=== PATIENT | female | born 1965 | race Caucasian/White ===

== ENCOUNTER 2019-09-05 19:49 | Emergency (ER) | payer MEDICAID, SELFPAY ==
[~2019-09-05] VITALS: Ht 172.7 cm; Wt 110.0 kg
--- NOTE | 2019-09-05 20:06 | NUR ---
BIB [facility] WITH C/O THROBBING MIGRAINE, PT SEEN [place] LAST NIGHT AND SEEN PMD TODAY RECEIVED UNKNOWN IM SHOT THAT HELPED BUT MIGRAINE IS NOW BACK. PT RESTING ON GURNEY, MONITORS APPLIED, SIDERAILS UP X2, CALL LIGHT WITHIN REACH
[2019-09-05] MEDS ORDERED: DIPHENHYDRAMINE 50 MG/ML, 1ML IVPush ONE (20:30)
[2019-09-05] MEDS ORDERED: PLEASE ENTER ALLERGIES MC SCH (20:30)
[2019-09-05] MEDS ORDERED: METOCLOPRAMIDE 5 MG/ML, 2ML IVPush ONE (20:30)
[2019-09-05] MEDS ORDERED: KETOROLAC 30 MG/1 ML IVPush ONE (20:30)
[2019-09-05] MEDS ORDERED: DIPHENHYDRAMINE 50 MG/ML, 1ML ONE (20:33)
[2019-09-05] MEDS ORDERED: KETOROLAC 30 MG/1 ML ONE (20:33)
[2019-09-05] MEDS ORDERED: METOCLOPRAMIDE 5 MG/ML, 2ML ONE (20:34)
--- NOTE | 2019-09-05 20:39 | NUR ---
pt medicated per mar
--- NOTE | 2019-09-05 20:56 | NUR ---
pt resting on gurney with eyes closed, nad, stated " my headache is a little better 8/10 on pain scale", call light within reach
[2019-09-05 21:34] VITALS: BP 135/68
--- NOTE | 2019-09-05 21:35 | NUR ---
PT RESTING WITH EYES STATED " NO CHANGE IN PAIN, 04/01", WILL UPDATE ERP
== END 2019-09-05 22:05 | disposition home or self-care (01) ==
LOC: ED 22:00
DX: G43.019 Migraine without aura, intractable, without status migrainosus (principal); I10 Essential (primary) hypertension
CPT/HCPCS: 93005; 96374; 96375; 99283; J1200; J1885; J2765